=== PATIENT | male | born 1955 | race African-American/Black ===

== ENCOUNTER 2018-04-19 10:51 | Emergency (ER) | payer MEDICARE ==
[~2018-04-19] VITALS: Ht 175.3 cm; Wt 128.8 kg
[~2018-04-19 10:51] MED LIST: HYDR-3164 PO; METH4TAB2 PO
[2018-04-19] MEDS ORDERED: cloNIDine HCL 0.1 MG TABLET PO ONE (12:00)
--- NOTE | 2018-04-19 12:27 | RAD ---
Right lower extremity venous doppler ultrasound History: Right leg pain Comparison: None Findings: Multiple grayscale, color, and duplex spectral analysis sonographic images were acquired of the right lower extremity veins to evaluate for the presence of DVT. There is normal phasicity. Normal compression, color-flow, and augmentation is demonstrated from the right common femoral to the popliteal veins. There is normal color flow of the proximal greater saphenous and profunda femoris veins. There is normal color flow of segments of the calf veins. There is a fluid collection of the superior right thigh/groin region about 4.1 x 3.2 x 2.7 cm not associated with significant vascularity, centrally anechoic. Impression: 1. There is no evidence of deep venous thrombosis from the right common femoral to popliteal veins. 2. There is nonspecific, avascular fluid collection of the superior right thigh/groin region. Electronically signed by: Bonifacio Mariscal MD (04/19/2018 12:23 PM) [id number]
--- NOTE | 2018-04-19 12:44 | PHYS DOC ---
Past Medical History Past Medical History: A-Fib, Hypertension Additional Past Medical Histor: Gout Past Surgical History: Other Additional Past Surgical Histo: Foot Alcohol Use: None Drug Use: None Adult General Chief Complaint Chief Complaint: LOWER EXT PAIN HPI HPI Patient is a 62 year old AA male who presents to the ER with complaints of right lower extremity redness, warmth, and swelling for the last 4 days. PT denies any fever, numbness, tingling, weakness, or injury to the area. He reports a history of gout. He reports taking pain reliever over the counter, and his daily gout medication as prescribed. Pt states that these medications have not helped to reduce his pain. Currently, he rates his pain a 10/10 on the pain scale. Pt is hypertensive on arrival, states that he has a history of hypertension and reports that he last took his blood pressure medications prior to arrival. Pt denies any headache. Review of Systems Review of Systems Constitutional: Denies fever or chills [] Musculoskeletal: See HPI Integument: denies any open sores or drainage, See HPI Neurologic: Denies headache, focal weakness or sensory changes [] Complete systems were reviewed and found to be within normal limits, except as documented in this note. Current Medications Current Medications Current Medications Medications (Trade) Dose Ordered Sig/Nayana Start Time Stop Time Status Last Admin Dose Admin Clonidine HCl (Catapres) 0.2 mg 1X ONCE 04/19/18 12:00 04/19/18 12:01 DC 04/19/18 13:04 0.2 MG Dexamethasone Sodium Phosphate (Decadron) 10 mg 1X ONCE 04/19/18 14:45 04/19/18 14:54 DC Allergies Allergies Allergies Coded Allergies Type Severity Reaction Last Updated Verified No Known Drug Allergies 10/20/13 No Physical Exam Physical Exam Constitutional: Well developed, well nourished, no acute distress, non-toxic appearance, obese. [] HENT: Normocephalic, atraumatic, bilateral external ears normal, oropharynx moist, no oral exudates, nose normal. [] Eyes: PERRLA, conjunctiva normal, no discharge. [] Cardiovascular:Heart rate regular rhythm, no murmur [] Lungs & Thorax: Bilateral breath sounds clear to auscultation [] Skin: Warm, dry, mild erythema noted to lateral lower right leg with 2+ edema and warmth. There is a scant amount of clear drainage noted to the anterior RLE no visible open wounds or abscess, consistent with cellulitis : R groin in non-tender to palpation with no erythema or abscess present. Extremities: RLE tenderness to palpation with 2+ edema, no cyanosis, no clubbing , ROM intact, Neurologic: Alert and oriented X 3, normal motor function, normal sensory function, no focal deficits noted. [] Psychologic: Affect normal, judgement normal, mood normal. [] Current Patient Data Vital Signs Vital Signs Date Time Temp Pulse Resp B/P (MAP) Pulse Ox O2 Delivery O2 Flow Rate FiO2 04/19/18 13:04 70 238/105 04/19/18 11:20 98.7 18 97 Room Air 98.7 Lab Values Laboratory Tests Test 04/19/18 13:20 White Blood Count 9.4 x10^3/uL (4.0-11.0) Red Blood Count 4.48 x10^6/uL (4.30-5.70) Hemoglobin 13.2 g/dL (13.0-17.5) Hematocrit 38.6 % (39.0-53.0) L Mean Corpuscular Volume 86 fL (79-100) Mean Corpuscular Hemoglobin 29 pg (25-35) Mean Corpuscular Hemoglobin Concent 34 g/dL (31-37) Red Cell Distribution Width 15.4 % (11.5-14.5) H Platelet Count 221 x10^3/uL (140-400) Neutrophils (%) (Auto) 69 % (31-73) Lymphocytes (%) (Auto) 21 % (24-48) L Monocytes (%) (Auto) 8 % (0-9) Eosinophils (%) (Auto) 2 % (0-3) Basophils (%) (Auto) 1 % (0-3) Neutrophils # (Auto) 6.4 x10^3uL (1.8-7.7) Lymphocytes # (Auto) 1.9 x10^3/uL (1.0-4.8) Monocytes # (Auto) 0.7 x10^3/uL (0.0-1.1) Eosinophils # (Auto) 0.2 x10^3/uL (0.0-0.7) Basophils # (Auto) 0.1 x10^3/uL (0.0-0.2) Sodium Level 141 mmol/L (136-145) Potassium Level 3.5 mmol/L (3.5-5.1) Chloride Level 101 mmol/L (98-107) Carbon Dioxide Level 33 mmol/L (21-32) H Anion Gap 7 (6-14) Blood Urea Nitrogen 11 mg/dL (8-26) Creatinine 1.1 mg/dL (0.7-1.3) Estimated GFR (Cockcroft-Gault) 81.8 BUN/Creatinine Ratio 10 (6-20) Glucose Level 92 mg/dL (70-99) Uric Acid 5.5 mg/dL (3.5-7.2) Calcium Level 8.9 mg/dL (8.5-10.1) Total Bilirubin 0.4 mg/dL (0.2-1.0) Aspartate Amino Transferase (AST) 16 U/L (15-37) Alanine Aminotransferase (ALT) 17 U/L (16-63) Alkaline Phosphatase 78 U/L (46-116) Total Protein 7.6 g/dL (6.4-8.2) Albumin 3.1 g/dL (3.4-5.0) L Albumin/Globulin Ratio 0.7 (1.0-1.7) L Laboratory Tests 04/19/18 13:20 Laboratory Tests 04/19/18 13:20 EKG EKG [] Radiology/Procedures Radiology/Procedures PROCEDURE: VENOUS LOWER EXTREMITY RIGHT Right lower extremity venous doppler ultrasound History: Right leg pain Comparison: None Findings: Multiple grayscale, color, and duplex spectral analysis sonographic images were acquired of the right lower extremity veins to evaluate for the presence of DVT. There is normal phasicity. Normal compression, color-flow, and augmentation is demonstrated from the right common femoral to the popliteal veins. There is normal color flow of the proximal greater saphenous and profunda femoris veins. There is normal color flow of segments of the calf veins. There is a fluid collection of the superior right thigh/groin region about 4.1 x 3.2 x 2.7 cm not associated with significant vascularity, centrally anechoic. Impression: 1. There is no evidence of deep venous thrombosis from the right common femoral to popliteal veins. 2. There is nonspecific, avascular fluid collection of the superior right thigh/groin region. [] Course & Med Decision Making Course & Med Decision Making Pertinent Labs and Imaging studies reviewed. (See chart for details) Dx: cellulitis RLE U/S of RLE was negative for any DVT or acute findings. CBC, CMP, and Uric acid were not concerning for gout or sepsis. Prescriptions for keflex and hydrocodone written. Patient verbalized an understanding of home care, medications, follow-up, and return to ED instructions and was in agreement with the plan of care. [] Dragon Disclaimer Dragon Disclaimer This electronic medical record was generated, in whole or in part, using a voice recognition dictation system. Departure Departure Impression: Primary Impression: Cellulitis of right lower extremity without foot Additional Impressions: Right leg pain Hypertension Disposition: HOME, SELF-CARE Condition: STABLE Referrals: ALAN ANTHONY MD (PCP) Patient Instructions: Cellulitis, [id number] Additional Instructions: Fill the prescriptions and use as directed. Follow up with primary care doctor in 1-2 days for re-evaluation and about your elevated blood pressure. Today your blood pressure was 174/96. Return to the ER if symptoms worsen. Scripts Hydrocodone Bit/Acetaminophen (HYDROCODONE-APAP 5-325 ) 1 Tab Tablet 1 TAB PO PRN Q6HRS PRN for PAIN for 3 Days, #12 TAB 0 Refills Prov: SAMANTHA LECHUGA DIRECTOR RADIATION ONCOLOGY 04/19/18 Cephalexin (CEPHALEXIN) 500 Mg Capsule 1 CAP PO QID for 7 Days, #28 CAP 0 Refills Prov: SAMANTHA LECHUGA APRN 04/19/18 Problem Qualifiers SAMANTHA LECHUGA DIRECTOR RADIATION ONCOLOGY Apr 19, 2018 12:44
[2018-04-19 13:04] VITALS: BP 238/105
[2018-04-19 13:33] LABS: BASO # 0.1 x10^3/uL (0.0-0.2); BASO % 1 % (0-3); EOS # 0.2 x10^3/uL (0.0-0.7); EOS % 2 % (0-3); HEMATOCRIT 38.6 % (39.0-53.0); HEMOGLOBIN 13.2 g/dL (13.0-17.5); LYMPH # 1.9 x10^3/uL (1.0-4.8); LYMPH % 21 % (24-48); MEAN CORPUSCULAR HEMOGLOBIN 29 pg (25-35); MEAN CORPUSCULAR HGB CONC 34 g/dL (31-37); MEAN CORPUSCULAR VOLUME 86 fL (79-100); MONO # 0.7 x10^3/uL (0.0-1.1); MONO % 8 % (0-9); NEUT # 6.4 x10^3uL (1.8-7.7); NEUT % 69 % (31-73); PLATELET COUNT 221 x10^3/uL (140-400); RED BLOOD COUNT 4.48 x10^6/uL (4.30-5.70); RED CELL DISTRIBUTION WIDTH 15.4 % (11.5-14.5); WHITE BLOOD COUNT 9.4 x10^3/uL (4.0-11.0)
[2018-04-19 13:42] LABS: CALCIUM 8.9 mg/dL (8.5-10.1); CREATININE 1.1 mg/dL (0.7-1.3); GFR 81.8; POTASSIUM 3.5 mmol/L (3.5-5.1)
[2018-04-19 13:49] LABS: ALBUMIN 3.1 g/dL (3.4-5.0); ALBUMIN/GLOBULIN RATIO 0.7 (1.0-1.7); TOTAL BILIRUBIN 0.4 mg/dL (0.2-1.0); TOTAL PROTEIN 7.6 g/dL (6.4-8.2); URIC ACID 5.5 mg/dL (3.5-7.2)
[2018-04-19] MEDS ORDERED: CEPH500C PO (14:23)
[2018-04-19] MEDS ORDERED: HYDR-2761 PO (14:23)
[2018-04-19] MEDS ORDERED: DEXAMETHASONE SOD PHOS 4 MG/ML VIAL IM ONE (14:45)
== END 2018-04-19 14:30 | disposition home or self-care (01) ==
LOC: ER 10:51
DX: L03.115 Cellulitis of right lower limb (principal); I10 Essential (primary) hypertension; I48.91 Unspecified atrial fibrillation; M10.9 Gout, unspecified
CPT/HCPCS: 36415; 80053; 84550; 85025; 93971; 99284-25